=== PATIENT | female | born 1985 ===

== ENCOUNTER 2017-10-31 19:32 | Inpatient (IN) ==
[2017-10-31] MEDS ORDERED: PROMETHAZINE 25 MG/1 ML VIAL IM STA (20:13)
[2017-10-31] MEDS ORDERED: HYDROmorphone 2 MG/1 ML VIAL IV STA (20:14)
[2017-10-31] MEDS ORDERED: PROMETHAZINE 25 MG/1 ML VIAL ONE (20:16)
[2017-10-31] MEDS ORDERED: HYDROmorphone 2 MG/1 ML VIAL ONE (20:17)
[2017-10-31] MEDS ORDERED: SODIUM CHLORIDE 0.9% 1,000 ML IV STA (20:43)
[2017-10-31] MEDS ORDERED: PANTOPRAZOLE 40 MG VIAL IV STA (20:43)
[2017-10-31 21:12] LABS: Basophils % 0.2 % (0.0-0.8); Eosinophils % 0.3 % (0.00-10.9); Hematocrit 37.1 VOL% (35.7-47.0); Hemoglobin 13.1 GM/DL (12.0-16.0); Immature Granulocytes % 0.2 %; Immature Granulocytes Absolute 0.03 #; Lymphocytes # 2.2 10*3/uL (1.4-4.0); Lymphocytes % 17.4 % (21.3-54.2); Mean Corpuscular HGB Conc 35.3 GM/DL (32-36); Mean Corpuscular Hemoglobin 31 PG (27-34); Mean Corpuscular Volume 88.8 FL (87-102); Mean Platelet Volume 9.5 FL (9.6-12.0); Neutrophils # 9.4 10*3/uL (1.4-7.4); Neutrophils % 73.9 % (38.7-73.9); Platelet Count 171 T/CUMM (130-400); Red Blood Count 4.18 MC/CUMM (3.8-5.5); Red Cell Distribution Width 12.9 % (9.3-17.3); White Blood Count 12.7 T/CUMM (4-12)
[2017-10-31 21:34] LABS: Albumin 3.4 G/DL (3.4-5.0); Bilirubin,Total 0.9 MG/DL (0.2-1.0); Calcium 8.4 MG/DL (8.5-10.1); Osmolality,Calculated 279.3 MOS/KG (273-304); Potassium 3.5 MMOL/L (3.5-5.1); Total Protein 6.1 G/DL (6.4-8.3)
[2017-10-31] MEDS ORDERED: PIPERACILLIN/TAZOBACTAM 3,375 MG in SODIUM CHLORIDE 0.9% 100 ML IV STA (21:35)
[2017-10-31 21:41] LABS: Apearance,Urine CLEAR (Clear); Bilirubin,Urine Negative (Negative); Blood, Urine Negative (Negative); Glucose,Urine (UA) Negative (Negative); Ketones,Urine 80 mg/dL (Negative); Mucus,Urine Occasional /LPF (Occasional); Nitrite,Urine Negative (Negative); Protein,Urine Negative; RBC,Urine 3 /HPF (0-4); Squamous Epithelial Cell,Urine Occasional /HPF (0-10); Urine Color Amber (Yellow); Urine Specific Gravity 1.013 (1.001-1.035); Urine Urobilinogen < 2.0 EU/DL (0.2-1.0); WBC,Urine 9 /HPF (0-6)
[2017-10-31 22:30] LABS: Lactic Acid 1.8 MMOL/L (0.4-2.0)
[2017-10-31] MEDS ORDERED: ACETAMINOPHEN 325 MG TABLET PO PRN (23:21)
[2017-10-31] MEDS ORDERED: ONDANSETRON 4 MG/2 ML VIAL IV PRN (23:21)
[2017-10-31] MEDS: SODIUM CHLORIDE 0.9% 1,000 ML IV SCH (23:36)
[2017-11-01] MEDS: HYDROmorphone 2 MG/1 ML VIAL IV PRN ×5 (00:47→23:21)
[2017-11-01 03:14] LABS: Apearance,Urine CLEAR (Clear); Bilirubin,Urine Negative (Negative); Blood, Urine Negative (Negative); Glucose,Urine (UA) Negative (Negative); Ketones,Urine Negative (Negative); Nitrite,Urine Negative (Negative); Protein,Urine Negative; RBC,Urine 2 /HPF (0-4); Squamous Epithelial Cell,Urine Occasional /HPF (0-10); Urine Color Yellow (Yellow); Urine Specific Gravity 1.016 (1.001-1.035); Urine Urobilinogen < 2.0 EU/DL (0.2-1.0); WBC,Urine 6 /HPF (0-6)
[2017-11-01] MEDS: PIPERACILLIN/TAZOBACTAM 3,375 MG in SODIUM CHLORIDE 0.9% 100 ML IV SCH ×3 (06:03→21:06)
[2017-11-01 08:23] LABS: Basophils % 0.1 % (0.0-0.8); Eosinophils % 0.2 % (0.00-10.9); Hematocrit 35.9 VOL% (35.7-47.0); Hemoglobin 12.6 GM/DL (12.0-16.0); Immature Granulocytes % 0.4 %; Immature Granulocytes Absolute 0.05 #; Lymphocytes # 1.7 10*3/uL (1.4-4.0); Lymphocytes % 13.6 % (21.3-54.2); Mean Corpuscular HGB Conc 35.1 GM/DL (32-36); Mean Corpuscular Hemoglobin 32 PG (27-34); Mean Platelet Volume 9.5 FL (9.6-12.0); Monocytes # 0.9 10*3/uL (0.11-0.8); Monocytes % 7.5 % (1.7-12.7); Neutrophils # 9.7 10*3/uL (1.4-7.4); Neutrophils % 78.2 % (38.7-73.9); Platelet Count 130 T/CUMM (130-400); Red Blood Count 3.99 MC/CUMM (3.8-5.5); Red Cell Distribution Width 12.9 % (9.3-17.3); White Blood Count 12.4 T/CUMM (4-12)
[2017-11-01 08:56] LABS: Albumin 2.7 G/DL (3.4-5.0); Bilirubin,Total 1.7 MG/DL (0.2-1.0); Calcium 7.8 MG/DL (8.5-10.1); Osmolality,Calculated 278.3 MOS/KG (273-304); Potassium 3.2 MMOL/L (3.5-5.1); Total Protein 5.6 G/DL (6.4-8.3)
[2017-11-01] MEDS: PANTOPRAZOLE 40 MG VIAL IV SCH (10:39)
[2017-11-01] MEDS: NITROFURANTOIN MACROCRYSTALS 100 MG CAPSULE PO SCH ×2 (10:39→21:06)
[2017-11-01] MEDS: SODIUM CHLORIDE 0.9% 1,000 ML IV SCH (17:50)
[2017-11-02] MEDS: SODIUM CHLORIDE 0.9% 1,000 ML IV SCH (02:53)
[2017-11-02] MEDS: HYDROmorphone 2 MG/1 ML VIAL IV PRN ×2 (03:20→16:57)
[2017-11-02] MEDS: PIPERACILLIN/TAZOBACTAM 3,375 MG in SODIUM CHLORIDE 0.9% 100 ML IV SCH ×2 (04:56→16:56)
[2017-11-02 05:10] LABS: Basophils % 0.2 % (0.0-0.8); Eosinophils # 0.2 10*3/uL (0.0-0.87); Eosinophils % 1.1 % (0.00-10.9); Hematocrit 38.5 VOL% (35.7-47.0); Immature Granulocytes % 0.5 %; Immature Granulocytes Absolute 0.08 #; Lymphocytes # 2.4 10*3/uL (1.4-4.0); Lymphocytes % 16.1 % (21.3-54.2); Mean Corpuscular HGB Conc 33.8 GM/DL (32-36); Mean Corpuscular Hemoglobin 31 PG (27-34); Mean Corpuscular Volume 91.9 FL (87-102); Monocytes # 1.2 10*3/uL (0.11-0.8); Neutrophils # 11.2 10*3/uL (1.4-7.4); Neutrophils % 74.1 % (38.7-73.9); Platelet Count 122 T/CUMM (130-400); Red Blood Count 4.19 MC/CUMM (3.8-5.5); Red Cell Distribution Width 12.8 % (9.3-17.3); White Blood Count 15.1 T/CUMM (4-12)
[2017-11-02 05:20] LABS: INR 1.4; PT Patient Result 14.7 SECS
[2017-11-02] MEDS ORDERED: FAMOTIDINE 20 MG/2 ML VIAL IV ONE (06:59)
[2017-11-02] MEDS ORDERED: LIDOCAINE 100 MG/5 ML SYRINGE ONE (09:00)
[2017-11-02] MEDS ORDERED: DEXAMETHASONE 4 MG/1 ML VIAL ONE (09:00)
[2017-11-02] MEDS ORDERED: SUCCINYLCHOLINE 200 MG/10 ML VIAL ONE (09:00)
[2017-11-02] MEDS ORDERED: ROCURONIUM 100 MG/10 ML VIAL IV ONE (09:00)
[2017-11-02] MEDS ORDERED: PROPOFOL 200 MG/20 ML VIAL IV ONE (09:00)
[2017-11-02] MEDS ORDERED: ONDANSETRON 4 MG/2 ML VIAL ONE (09:00)
[2017-11-02] MEDS: PANTOPRAZOLE 40 MG VIAL IV SCH (10:08)
[2017-11-02] MEDS ORDERED: INDOMETHACIN SUPP 50 MG SUPP RECTAL ONE (11:00)
[2017-11-02] MEDS: NITROFURANTOIN MACROCRYSTALS 100 MG CAPSULE PO SCH ×2 (11:31→20:11)
[2017-11-02] MEDS ORDERED: fentaNYL 100 MCG/2 ML VIAL ONE ×2 (14:03→14:26)
[2017-11-02] MEDS ORDERED: MIDAZOLAM 2 MG/2 ML VIAL ONE (14:06)
[2017-11-03] MEDS: PIPERACILLIN/TAZOBACTAM 3,375 MG in SODIUM CHLORIDE 0.9% 100 ML IV SCH ×3 (01:03→16:46)
[2017-11-03] MEDS: LACTATED RINGERS 1,000 ML IV SCH ×5 (01:04→22:37)
[2017-11-03] MEDS: HYDROmorphone 2 MG/1 ML VIAL IV PRN ×2 (07:52→20:23)
[2017-11-03] MEDS: PANTOPRAZOLE 40 MG VIAL IV SCH (09:06)
[2017-11-03] MEDS: NITROFURANTOIN MACROCRYSTALS 100 MG CAPSULE PO SCH ×2 (10:29→20:25)
[2017-11-03] MEDS ORDERED: LIDOCAINE 1%/EPI INJ 20 ML VIAL ONE (11:26)
[2017-11-03] MEDS ORDERED: TISSUE ADHESIVE 1 EACH APPLICATOR TOP ONE (11:26)
[2017-11-03] MEDS ORDERED: BUPIVACAINE MPF 0.25% /EPI 30 ML VIAL ONE (11:26)
[2017-11-03] MEDS ORDERED: fentaNYL 100 MCG/2 ML VIAL ONE (13:50)
[2017-11-03] MEDS ORDERED: MIDAZOLAM 2 MG/2 ML VIAL ONE (13:50)
[2017-11-03] MEDS ORDERED: PROPOFOL 200 MG/20 ML VIAL IV ONE (14:15)
[2017-11-03] MEDS ORDERED: SEVOFLURANE 1 UNIT/15 MINUTE INH ONE (14:15)
[2017-11-03] MEDS ORDERED: ONDANSETRON 4 MG/2 ML VIAL ONE (14:15)
[2017-11-03] MEDS ORDERED: LACTATED RINGERS 1,000 ML IV ONE (14:16)
[2017-11-03] MEDS ORDERED: ESMOLOL 100 MG/10 ML VIAL IV ONE (14:16)
[2017-11-03] MEDS ORDERED: KETOROLAC 30 MG/1 ML VIAL ONE (14:16)
[2017-11-03] MEDS ORDERED: ROCURONIUM 100 MG/10 ML VIAL IV ONE (14:16)
[2017-11-03] MEDS ORDERED: NEOSTIGMINE 10 MG/10 ML VIAL ONE (14:16)
[2017-11-03] MEDS ORDERED: ACETAMINOPHEN 1,000 MG/100 ML VIAL IV ONE (14:16)
[2017-11-03] MEDS ORDERED: GLYCOPYRROLATE 0.4 MG/2 ML VIAL ONE (14:16)
[2017-11-03] MEDS: SODIUM CHLORIDE 0.9% 1,000 ML IV SCH ×4 (19:24→23:31)
[2017-11-04] MEDS: PIPERACILLIN/TAZOBACTAM 3,375 MG in SODIUM CHLORIDE 0.9% 100 ML IV SCH ×2 (00:44→09:21)
[2017-11-04] MEDS: HYDROmorphone 2 MG/1 ML VIAL IV PRN ×2 (04:44→10:09)
[2017-11-04 05:35] LABS: Albumin 2.1 G/DL (3.4-5.0); Bilirubin,Direct 0.2 MG/DL (0.0-0.20); Bilirubin,Indirect 1.2 MG/DL (0.0-1.0); Bilirubin,Total 1.4 MG/DL (0.2-1.0); Total Protein 5.4 G/DL (6.4-8.3)
[2017-11-04] MEDS: PANTOPRAZOLE 40 MG VIAL IV SCH (09:22)
[2017-11-04] MEDS: NITROFURANTOIN MACROCRYSTALS 100 MG CAPSULE PO SCH (09:23)
[2017-11-04] MEDS: SODIUM CHLORIDE 0.9% 1,000 ML IV SCH (10:09)
[2017-11-04 11:53] VITALS: BP 109/62
== END 2017-11-04 15:12 | disposition home or self-care (01) | DRG 419 ==
LOC: EDUNIT# → EDBD → N.ED 19:32 → N.EDINP 21:46 → N.3E 22:40
PROVIDERS: ADMIT Surgery; ATTEND Surgery
PROC: ERCPWSP (ICD-10-PCS; 2017-11-02 11:20)
PROC: LAPCHOL (2017-11-03 12:30)